=== PATIENT | female | born 1985 | race Caucasian/White ===

== ENCOUNTER 2021-08-04 10:28 | Emergency (ER) | payer BC ==
[2021-08-04 11:48] LABS: BLOOD UREA NITROGEN,BUN 16 mg/dL (7.0-18.0); CHLORIDE,CL 101 mmol/L (98-107); GLUCOSE RANDOM 92 mg/dL (74-106); POTASSIUM,K 3.7 mmol/L (3.5-5.1); SODIUM,NA 138 mmol/L (136-145)
--- NOTE | 2021-08-04 13:00 | US ---
INDICATION: Bleeding, early OB TECHNIQUE: Ultrasound OB pelvis transabdominal and transvaginal. Real-time burch-scale imaging of the pelvis was performed. COMPARISON: None FINDINGS: There is demonstration of a gestational sac and yolk sac with a small pole measuring 2.1 millimeters. No discernible cardiac activity is appreciated at this time. This corresponds to gestational age of 5 weeks 5 days. The ovaries are grossly normal in size contour and echogenicity with normal follicles. There is likely a trace amount of perigestational fluid. IMPRESSION: Demonstration of a gestational sac, early pole and yolk sac measuring 5 weeks 5 days without definite cardiac activity at this time likely too early to be detected. Recommend follow-up with repeat exam in 2-3 weeks time to document viability and/or follow-up with serial quantitative beta HCG. Dictated by Marty Thurston MD @ 08/04/2021 12:58:09 PM (Electronically Signed)
--- NOTE | 2021-08-04 13:50 | EDM.PDOC ---
ED HPI GENERAL MEDICAL PROBLEM - General Chief Complaint: DEBEAKER Problem Stated Complaint: SYMPTOMS OF MISCARRAGE Time Seen by Provider: 08/04/21 10:31 Source of Information: Reports: Patient History Limitations: Reports: No Limitations - History of Present Illness INITIAL COMMENTS - FREE TEXT/NARRATIVE: HISTORY AND PHYSICAL: History of present illness: Patient is a 35-year-old female who presents emergency room today with concern of vaginal bleeding in early . Patient states that according to her last menstrual cycle she is approximately 5 weeks in gestation and her first set of at-home test was on 07/29/2020. Patient states that she is from [place] and does all of her care there but is visiting here in [place]. Patient states that she is friends with an DEBEAKER provider here who instructed her to come to the emergency room. Patient states that over the past 2 days, she has had some vaginal bleeding. 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 Patient states that ranges from light pink to a brownish color and states that she has had a few small clots. Patient does not have any associated pain. Patient states that she did have a recent spontaneous miscarriage at about 9 weeks and states that she was clear in May by her DEBEAKER provider to start trying again to conceive. Patient denies any other health history or any other symptoms or concerns. Patient is positive for COVID today at walk in clinic. Patient denies fever, chills, chest pain, shortness of breath, or cough. Denies headache, neck stiff ness, change in vision, syncope, or near syncope. Denies nausea, vomiting, abdominal pain, diarrhea, constipation, or dysuria. Has not noted any blood in urine or stool. Patient has been eating and drinking appropriately. Review of systems: As per history of present illness and below otherwise all systems reviewed and negative. Past medical history: As per history of present illness and as reviewed below otherwise noncontributory. Surgical history: As per history of present illness and as reviewed below otherwise noncontributory. Social history: See social history for further information Family history: As per history of present illness and as reviewed below otherwise noncontributory. Physical exam: General: Patient is alert, oriented, and in no acute distress. Patient sitting comfortably on exam table. Vital stable and reviewed by me. HEENT: Atraumatic, normocephalic, pupils equal and reactive bilaterally, negative for conjunctival pallor or scleral icterus, mucous membranes moist, throat clear, neck supple, nontender, trachea midline. No drooling or trismus noted. No meningeal signs. No hot potato voice noted. Lungs: Clear to auscultation, breath sounds equal bilaterally, chest nontender. Heart: S1S2, regular rate and rhythm without overt murmur Abdomen: Soft, nondistended, nontender. Negative for masses or hepatosplenomegaly. Negative for costovertebral tenderness. Pelvis: Stable nontender. Genitourinary: exam performed by PA student Lanie RUTHERFORD observed and supervised directly by me. External genitalia grossly unremarkable. There is a small to moderate amount of white vaginal discharge in the vaginal vault. Cervical os is closed. Negative cervical motion tenderness. Uterus nontender. Rectal: Deferred. Skin: Intact, warm, dry. No lesions or rashes noted. Extremities: Atraumatic, negative for cords or calf pain. Neurovascular unremarkable. Neuro: Awake, alert, oriented. Cranial nerves II through XII unremarkable. Cerebellum unremarkable. Motor and sensory unremarkable throughout. Exam nonfocal. Medical Decision Making: White blood cell count is decreased at 2.74 . Note that patient is COVID-positive today at the walk-in clinic. hCG quant is 18,900 today. Mild derangements of lab work today unremarkable. She is B positive blood type. Does not require RhoGAM Urinalysis does show positive leukocyte Estrace with 4-8 white blood cells and 1+ bacteria. Patient is asymptomatic but will treat for asymptomatic bacteriuria in . Transvaginal ultrasound demonstration of a gestational sac, early pole and yolk sac measuring 5 weeks and 5 days without definite cardiac activity at this time, likely too early to be detected. Recommend follow-up with repeat exam in 2 to 3 weeks to document viability and/or follow-up with serial quantitative beta hCG. On reevaluation of patient, treatment is vitally stable and comfortable throughout stay in ED. Strict return precautions thoroughly discussed with patient. Discussed the importance for follow-up with her DEBEAKER provider. Voices understanding and is agreeable to plan of care. Denies any further questions or concerns at this time. Diagnostics: CBC, CMP, hCG quant, transvaginal ultrasound, RH/Blood type Therapeutics: None Prescription: None Impression: Uterine , 5 weeks Abnormal uterine bleeding in Plan: 1. Please start and/or continue to take your vitamin with folic acid once daily. Take medication as prescribed. [facility] 2. Pelvic rest until cleared by your OBGYN (no tampons, sex, etc...) 3. Tylenol as needed for pain management. This is safe to use in . 4. Follow up with your DEBEAKER in the next 1-2 days as discussed. Return to the ED as needed and as discussed. Definitive disposition and diagnosis as appropriate pending reevaluation and review of above. abdominal cramping Pain Score (Numeric/FACES): 2 - Related Data Allergies Allergy/AdvReac Type Severity Reaction Status Date / Time Penicillins Allergy Rash Verified 08/04/21 10:39 Home Meds: Home Meds 95/Iron Fum/Folic/Dha [ + Dha Combo Pack] 1 tab PO DAILY 08/04/21 [History] cephALEXin [Keflex] 500 mg PO Q8H 5 Days #15 cap 08/04/21 [Rx] Past Medical History DEBEAKER History: Reports: , Other (See Below) Other DEBEAKER History: Last ended in miscarriage, 03/2021. - Infectious Disease History Infectious Disease History: Reports: Chicken Pox, Novel Coronavirus Social & Family History - Family History Family Medical History: No Pertinent Family History - Caffeine Use Caffeine Use: Reports: None - Recreational Drug Use Recreational Drug Use: No ED ROS GENERAL - Review of Systems Review Of Systems: Comprehensive ROS is negative, except as noted in HPI. ED EXAM, GENERAL - Physical Exam Exam: See Below (see dictation) Course - Vital Signs Last Recorded V/S: Last Vital Signs Temp 98.1 F 08/04/21 10:40 Pulse 67 08/04/21 14:27 Resp 16 08/04/21 10:40 BP 111/63 08/04/21 14:27 Pulse Ox 98 08/04/21 14:27 - Orders/Labs/Meds Orders: Active Orders 24 hr Category Date Time Status CULTURE URINE [MREF] Stat Lab 08/04/21 11:15 Received Labs: Laboratory Tests 08/04/21 08/04/21 08/04/21 Range/Units 10:50 10:50 10:50 WBC 2.74 L (4.0-11.0) K/uL RBC 4.92 (4.30-5.90) M/uL Hgb 14.4 (12.0-16.0) g/dL Hct 43.8 (36.0-46.0) % MCV 89.0 (80.0-98.0) fL MCH 29.3 (27.0-32.0) pg MCHC 32.9 (31.0-37.0) g/dL RDW Std Deviation 40.8 (28.0-62.0) fl RDW Coeff of Rangel 13 (11.0-15.0) % Plt Count 157 (150-400) K/uL MPV 10.80 (7.40-12.00) fL Neut % (Auto) 42.4 L (48.0-80.0) % Lymph % (Auto) 38.7 (16.0-40.0) % Owsley % (Auto) 17.5 H (0.0-15.0) % Eos % (Auto) 0.7 (0.0-7.0) % Baso % (Auto) 0.7 (0.0-1.5) % Neut # (Auto) 1.2 L (1.4-5.7) K/uL Lymph # (Auto) 1.1 (0.6-2.4) K/uL Owsley # (Auto) 0.5 (0.0-0.8) K/uL Eos # (Auto) 0.0 (0.0-0.7) K/uL Baso # (Auto) 0.0 (0.0-0.1) K/uL Nucleated RBC % 0.0 /100WBC Nucleated RBCs # 0 K/uL Sodium 138 (136-145) mmol/L Potassium 3.7 (3.5-5.1) mmol/L Chloride 101 (98-107) mmol/L Carbon Dioxide 28.0 (21.0-32.0) mmol/L BUN 16 (7.0-18.0) mg/dL Creatinine 0.9 (0.6-1.0) mg/dL Est Cr Clr Drug Dosing 92.05 mL/min Estimated GFR (MDRD) > 60.0 ml/min Glucose 92 (74-106) mg/dL Calcium 9.0 (8.5-10.1) mg/dL Total Bilirubin 0.2 (0.2-1.0) mg/dL AST 17 (15-37) IU/L ALT 26 (14-63) IU/L Alkaline Phosphatase 56 (46-116) U/L Total Protein 8.0 (6.4-8.2) g/dL Albumin 3.9 (3.4-5.0) g/dL Globulin 4.1 H (2.6-4.0) g/dL Albumin/Globulin Ratio 1.0 (0.9-1.6) Progesterone 12.01 NG/ML HCG, Quant 94587.0 mIU/mL Urine Color Urine Appearance Urine pH (5.0-8.0) Ur Specific Ballantine (1.001-1.035) Urine Protein (NEGATIVE) mg/dL Urine Glucose (UA) (NEGATIVE) mg/dL Urine Ketones (NEGATIVE) mg/dL Urine Occult Blood (NEGATIVE) Urine Nitrite (NEGATIVE) Urine Bilirubin (NEGATIVE) Urine Urobilinogen (<2.0) EU/dL Ur Leukocyte Esterase (NEGATIVE) Urine RBC (0-2/HPF) Urine WBC (0-5/HPF) Ur Epithelial Cells (NONE-FEW) Urine Bacteria (NEGATIVE) Blood Type B POSITIVE 08/04/21 Range/Units 11:15 WBC (4.0-11.0) K/uL RBC (4.30-5.90) M/uL Hgb (12.0-16.0) g/dL Hct (36.0-46.0) % MCV (80.0-98.0) fL MCH (27.0-32.0) pg MCHC (31.0-37.0) g/dL RDW Std Deviation (28.0-62.0) fl RDW Coeff of Rangel (11.0-15.0) % Plt Count (150-400) K/uL MPV (7.40-12.00) fL Neut % (Auto) (48.0-80.0) % Lymph % (Auto) (16.0-40.0) % Owsley % (Auto) (0.0-15.0) % Eos % (Auto) (0.0-7.0) % Baso % (Auto) (0.0-1.5) % Neut # (Auto) (1.4-5.7) K/uL Lymph # (Auto) (0.6-2.4) K/uL Owsley # (Auto) (0.0-0.8) K/uL Eos # (Auto) (0.0-0.7) K/uL Baso # (Auto) (0.0-0.1) K/uL Nucleated RBC % /100WBC Nucleated RBCs # K/uL Sodium (136-145) mmol/L Potassium (3.5-5.1) mmol/L Chloride (98-107) mmol/L Carbon Dioxide (21.0-32.0) mmol/L BUN (7.0-18.0) mg/dL Creatinine (0.6-1.0) mg/dL Est Cr Clr Drug Dosing mL/min Estimated GFR (MDRD) ml/min Glucose (74-106) mg/dL Calcium (8.5-10.1) mg/dL Total Bilirubin (0.2-1.0) mg/dL AST (15-37) IU/L ALT (14-63) IU/L Alkaline Phosphatase (46-116) U/L Total Protein (6.4-8.2) g/dL Albumin (3.4-5.0) g/dL Globulin (2.6-4.0) g/dL Albumin/Globulin Ratio (0.9-1.6) Progesterone NG/ML HCG, Quant mIU/mL Urine Color YELLOW Urine Appearance HAZY Urine pH 6.0 (5.0-8.0) Ur Specific Ballantine 1.025 (1.001-1.035) Urine Protein TRACE H (NEGATIVE) mg/dL Urine Glucose (UA) NEGATIVE (NEGATIVE) mg/dL Urine Ketones NEGATIVE (NEGATIVE) mg/dL Urine Occult Blood LARGE H (NEGATIVE) Urine Nitrite NEGATIVE (NEGATIVE) Urine Bilirubin NEGATIVE (NEGATIVE) Urine Urobilinogen 0.2 (<2.0) EU/dL Ur Leukocyte Esterase MODERATE H (NEGATIVE) Urine RBC 0-3 (0-2/HPF) Urine WBC 4-8 (0-5/HPF) Ur Epithelial Cells MODERATE (NONE-FEW) Urine Bacteria 1+ H (NEGATIVE) Blood Type Departure - Departure Time of Disposition: 16:27 Disposition: Home, Self-Care 01 Clinical Impression: Intrauterine , Abnormal uterine bleeding, Asymptomatic bacteriuria during - Discharge Information Prescriptions: cephALEXin [Keflex] 500 mg PO Q8H 5 Days #15 cap Instructions: Abnormal Uterine Bleeding, [id number] Referrals: PCP,Not In Area [Primary Care Provider] - Forms: ED Department Discharge Additional Instructions: The following information is given to patients seen in the emergency department who are being discharged to home. This information is to outline your options for follow-up care. We provide all patients seen in our emergency department with a follow-up referral. The need for follow-up, as well as the timing and circumstances, are variable depending upon the specifics of your emergency department visit. If you don't have a primary care physician on staff, we will provide you with a referral. We always advise you to contact your personal physician following an emergency department visit to inform them of the circumstance of the visit and for follow-up with them and/or the need for any referrals to a consulting specialist. The emergency department will also refer you to a specialist when appropriate. This referral assures that you have the opportunity for follow-up care with a specialist. All of these measure are taken in an effort to provide you with optimal care, which includes your follow-up. Under all circumstances we always encourage you to contact your private physician who remains a resource for coordinating your care. When calling for follow-up care, please make the office aware that this follow-up is from your recent emergency room visit. If for any reason you are refused follow-up, please contact the [facility] at and asked to speak to the emergency department charge nurse. [facility] [address] [place] [id number] [facility] [address] [place] [id number] [facility] [address] [place] [address] 1. Please start and/or continue to take your vitamin with folic acid once daily. Take medication as prescribed. [facility] 2. Pelvic rest until cleared by your OBGYN (no tampons, sex, etc...) 3. Tylenol as needed for pain management. This is safe to use in . 4. Follow up with your DEBEAKER in the next 1-2 days as discussed. Return to the ED as needed and as discussed. Your hcg quantitative today is 18,904. Sepsis Event Note (ED) - Evaluation Sepsis Screening Result: No Definite Risk - Focused Exam Vital Signs: Vital Signs Temp Pulse Resp BP Pulse Ox 08/04/21 14:27 67 111/63 98 08/04/21 13:45 59 L 112/64 98 08/04/21 12:45 77 113/66 97 08/04/21 11:45 66 118/68 97 08/04/21 10:40 98.1 F 71 16 137/52 L 98 - My Orders Last 24 Hours: My Active Orders 08/04/21 11:15 CULTURE URINE [MREF] Stat - Assessment/Plan Last 24 Hours: My Active Orders 08/04/21 11:15 CULTURE URINE [MREF] Stat
== END 2021-08-04 14:29 | disposition home or self-care (01) ==
LOC: MW.ED 10:28
DX: O99.891 Other specified diseases and conditions complicating pregnancy (principal); N93.9 Abnormal uterine and vaginal bleeding, unspecified; R82.71 Bacteriuria; Z86.16 Personal history of COVID-19; Z88.0 Allergy status to penicillin; Z3A.01 Less than 8 weeks gestation of pregnancy
CPT/HCPCS: 36415; 76801; 76801-26; 80053; 81001; 84144; 84702; 85025; 86900; 86901; 87086; 99284-25